=== PATIENT | female | born 1995 | race Hispanic/Latino ===

== ENCOUNTER 2018-04-16 03:07 | Emergency (ER) | payer SELFPAY ==
[2018-04-16] MEDS ORDERED: Adacel (T-DAP) 0.5 ML VIAL ONE (03:43)
== END 2018-04-16 04:04 | disposition home or self-care (01) ==
LOC: ERS 03:07
DX: S01.01XA Laceration without foreign body of scalp, initial encounter (principal); W50.0XXA Accidental hit or strike by another person, initial encounter
CPT/HCPCS: 12001; 90471; 90715